=== PATIENT | female | born 1965 | race Caucasian/White ===

== ENCOUNTER → 2017-01-06 | Outpatient (CLI) | payer BC ==
[2017-01-06 19:22] LABS: Blood Urea Nitrogen 13 mg/dL (7-17); Non-African American GFR(MDRD) >60 (>60 ml/min/1.73 sqM)
--- NOTE | 2017-01-06 20:02 | CT ---
EXAMINATION TYPE: CT abdomen pelvis w con DATE OF EXAM: 01/06/2017 COMPARISON: 07/24/2010 HISTORY: Pelvic pain with alternating diarrhea and constipation x [address] DLP: 1693.20 mGycm Automated exposure control for dose reduction was used. TECHNIQUE: Helical acquisition of images was performed from the lung bases through the pelvis. CONTRAST: Performed with Oral Contrast and with IV Contrast, patient injected with 100 mL of Omnipaque 300. FINDINGS: Lung bases are clear. There is no pleural effusion. There is a gastric sleeve at the gastroesophageal junction. The liver spleen pancreas appear normal. Bile ducts are not dilated. Gallbladder is absent. There is no adrenal mass. Kidneys show satisfactory contrast opacification. There is no hydronephrosi s. There is no ascites. I see no intestinal wall thickening. There are no dilated loops. Appendix is not seen. There is no sign of appendicitis. I see no bony destructive process. There is probably a 2 mm calculus in the lower pole left kidney.: IMPRESSION: NO SIGN OF ACUTE ABDOMEN AND PELVIS. POSSIBLE SMALL CALCULUS IN THE LEFT KIDNEY. NO ADVERSE CHANGE CO MPARED TO OLD EXAM. THERE IS CLEARING OF CYSTIC MASSES IN THE PELVIS ON THE LEFT SIDE COMPARED TO OLD EXAM.
== END | disposition home or self-care (01) ==
LOC: RADCTMAIN 18:43
PROVIDERS: ATTEND Physician Assistant
DX: R19.00 Intra-abdominal and pelvic swelling, mass and lump, unspecified site (principal); R11.0 Nausea; R10.84 Generalized abdominal pain
CPT/HCPCS: 82565; 84520; 74177; 36415; Q9967

== ENCOUNTER → 2017-08-17 | Outpatient (CLI) | payer BC ==
--- NOTE | 2017-08-18 13:34 | MM ---
Reason for exam: screening (asymptomatic). Last mammogram was performed 4 years and 3 months ago. History: Patient is postmenopausal. Family history of premenopausal breast cancer in grandmother and breast cancer in maternal grandmother. Physical Findings: A clinical breast exam by your physician is recommended on an annual basis and results should be correlated with mammographic findings. MG 3D Screening Mammo W/Cad Bilateral CC and MLO view(s) were taken. XCCL view(s) were taken of the left breast. Prior study comparison: May 16, 2013, right diagnostic mammogram w/CAD. November 16, 2012, [facility] DIGITAL RIGHT MAMMOGRAM w/CAD. The breast tissue is heterogeneously dense. This may lower the sensitivity of mammography. There are typically benign round calcifications in both breasts. There is no discrete abnormality. ASSESSMENT: Benign, BI-RAD 2 RECOMMENDATION: Routine screening mammogram of both breasts in 1 year.
== END | disposition home or self-care (01) ==
LOC: RADMAMWWP 10:44
PROVIDERS: ATTEND Obstetrics & Gynecology
DX: Z12.31 Encounter for screening mammogram for malignant neoplasm of breast (principal); Z80.3 Family history of malignant neoplasm of breast
CPT/HCPCS: 77063; 77067

== ENCOUNTER → 2020-06-10 | Outpatient (CLI) | payer MEDICARE, BC ==
--- NOTE | 2020-06-11 11:28 | MM ---
Reason for exam: screening (asymptomatic). Last mammogram was performed 2 years and 10 months ago. History: Patient is postmenopausal. Family history of premenopausal breast cancer in grandmother and breast cancer in maternal grandmother. Took hormonal contraceptives for 5 months. Physical Findings: A clinical breast exam by your physician is recommended on an annual basis and results should be correlated with mammographic findings. MG 3D Screening Mammo W/Cad Bilateral CC and MLO view(s) were taken. Prior study comparison: August 17, 2017, bilateral MG 3d screening mammo w/cad. The breast tissue is heterogeneously dense. This may lower the sensitivity of mammography. No significant changes when compared with prior studies. ASSESSMENT: Negative, BI-RAD 1 RECOMMENDATION: Routine screening mammogram of both breasts in 1 year.
== END ==
LOC: RADMAMWWP 10:12
PROVIDERS: ATTEND Family Medicine
DX: Z12.31 Encounter for screening mammogram for malignant neoplasm of breast (principal); Z78.0 Asymptomatic menopausal state; Z80.3 Family history of malignant neoplasm of breast
CPT/HCPCS: 77063; 77067

== ENCOUNTER → 2021-08-15 | Outpatient (CLI) | payer BC, MEDICARE ==
[2021-08-15 20:16] LABS: C Reactive Protein 0.4 mg/dL (0.00-0.80)
[2021-08-15 22:39] LABS: Anti-DNA, DS unit <1.0 IU/mL; Cardiolipin Ab IgG Interp NEGATIVE (NEGATIVE); Cardiolipin Ab IgM Interp NEGATIVE (NEGATIVE); Cardiolipin IgA Antibody <2.0 U/mL; Cardiolipin IgM Antibody <1.5 U/mL; DNA Double-Stranded NEGATIVE (NEGATIVE)
== END | disposition home or self-care (01) ==
LOC: LABWHC1 12:33
PROVIDERS: ATTEND Physician Assistant
DX: D68.61 Antiphospholipid syndrome (principal)
CPT/HCPCS: 36415; 85652; 86038; 86140; 86147; 86160; 86225

== ENCOUNTER → 2021-09-25 | Outpatient (CLI) | payer BC, MEDICARE ==
--- NOTE | 2021-09-29 17:07 | MM ---
Reason for Exam: Screening (asymptomatic). Last mammogram was performed 1 year(s) and 3 month(s) ago. Patient History: Menarche at age 9. First Full-Term at age 21. Left ovary removed at age 44. Hysterectomy at age 33. Postmenopausal. Hormonal Contraceptives for 5 months. Maternal grandmother had breast cancer. Maternal grandmother had breast cancer. Risk Values: Barbara 5 year model risk: 1.3%. NCI Lifetime model risk: 7.6%. Prior Study Comparison: 05/16/2013 Right Diagnostic Mammogram, [facility]. 08/17/2017 Bilateral Screening Mammogram, [facility]. 06/10/2020 Bilateral Screening Mammogram, [facility]. Tissue Density: The breast tissue is heterogeneously dense. This may lower the sensitivity of mammography. Findings: Analyzed By CAD. No suspicious spiculated or lobular masses or clusters of microcalcifications or architectural distortion is evident. Findings appear stable. There is somewhat asymmetric parenchymal tissue is greater in the left than the right which is stable in appearance. Overall Assessment: Benign, BI-RAD 2 Management: Screening Mammogram of both breasts in 1 year. A clinical breast exam by your physician is recommended on an annual basis and results should be correlated with mammographic findings. Electronically signed and approved by: Fabian Benito D.O. Radiologis
== END | disposition home or self-care (01) ==
LOC: RADMAMWWP 07:34
PROVIDERS: ATTEND Family Medicine
DX: Z12.31 Encounter for screening mammogram for malignant neoplasm of breast (principal); Z80.3 Family history of malignant neoplasm of breast; Z78.0 Asymptomatic menopausal state
CPT/HCPCS: 77063; 77067

== ENCOUNTER → 2022-09-25 | Outpatient (CLI) | payer BC, MEDICARE ==
[2022-09-25 14:05] LABS: African American GFR (CKD) >90 (>60 ml/min/1.73 sqM); Blood Urea Nitrogen 9 mg/dL (7-17); Non-African American GFR(CKD) >90 (>60 ml/min/1.73 sqM)
--- NOTE | 2022-09-25 14:46 | CT ---
EXAMINATION TYPE: CT abdomen w con DATE OF EXAM: 09/25/2022 COMPARISON: 01/06/2017 HISTORY: RLQ abdomen pain and numbness. Suspected hernia. CT DLP: 864.6 mGycm Automated exposure control for dose reduction was used. TECHNIQUE: Helical acquisition of images was performed from the lung bases through the top of iliac crest to include entire abdomen. CONTRAST: Performed with Oral Contrast and with IV Contrast, patient injected with 100 ml mL of Isovue 300. FINDINGS: LUNG BASES: There is soft tissue fullness in the mediastinum is only partially measuring 1.1 cm and 5 in this may represent a small amount of pericardial fluid. LIVER/GB: Post cholecystectomy changes are seen. There is mildly reduced in attenuation, correlate fo r hepatic steatosis. PANCREAS: No significant abnormality is seen. SPLEEN: No significant abnormality is seen. ADRENALS: No significant abnormality is seen. KIDNEYS: No significant abnormality is seen. BOWEL: There is mild wall thickening of the distal esophagus. Bowel gas pattern nonspecific with no obstruction at LYMPH NODES: No significant abnormality is seen. OSSEOUS STRUCTURES: Mild hypertrophic changes of the spine. FREE AIR: No free air is visualized. OTHER: A 1 cm subcutaneous density in the anterior left wall and posterior left flank are too small t o characterize. Lap band catheter are stable. No sizable hernia identified. Atherosclerotic change of the aorta but no aneurysm. IMPRESSION: 1. NO EVIDENCE OF ABDOMINAL HERNIA. 2. POST GASTRIC LAP BAND SURGERY WITH MILD THICKENING OF THE WALL THE DISTAL ESOPHAGUS WHICH CAN BE A SSOCIATED WITH REFLUX ESOPHAGITIS CORRELATE CLINICALLY. CONSIDER EGD. 3. SMALL SUBCUTANEOUS NODULES TOO SMALL TO CHARACTERIZE.
== END | disposition home or self-care (01) ==
LOC: RADCTMAIN 13:22
PROVIDERS: ATTEND Family Medicine
DX: R10.813 Right lower quadrant abdominal tenderness (principal); R91.8 Other nonspecific abnormal finding of lung field
CPT/HCPCS: 82565; 84520; 74160; 36415; Q9967

== ENCOUNTER → 2022-10-07 | Outpatient (CLI) | payer BC, MEDICARE ==
--- NOTE | 2022-10-08 07:35 | MM ---
Reason for Exam: Screening (asymptomatic). Last screening mammogram was performed 12 month(s) ago. Patient History: Menarche at age 9. First Full-Term at age 21. Left ovary removed at age 44. Hysterectomy at age 33. Postmenopausal. Hormonal Contraceptives for 5 months. Maternal grandmother had breast cancer, age 67. Paternal grandmother had breast cancer, age 40. Risk Values: Barbara 5 year model risk: 1.4%. NCI Lifetime model risk: 7.4%. Prior Study Comparison: 08/17/2017 Bilateral Screening Mammogram, [facility]. 06/10/2020 Bilateral Screening Mammogram, [facility]. 09/25/2021 Bilateral MG 3D screening mammo w/cad, [facility]. Tissue Density: The breast tissue is heterogeneously dense. This may lower the sensitivity of mammography. Findings: Analyzed By CAD. There is no suspicious group of microcalcifications or new suspicious mass in either breast. Benign appearing round calcifications within both breasts. Overall Assessment: Benign, BI-RAD 2 Management: Screening Mammogram of both breasts in 1 year. A clinical breast exam by your physician is recommended on an annual basis and results should be correlated with mammographic findings. Note on Barbara scores and lifetime risk: 1. A Barbara score greater than 3% is considered moderate risk. If this is the case, consider specialist referral to assess eligibility for a risk reducing agent. If overall lifetime risk for the development of breast cancer is 20% or higher, the patient may qualify for future screening with alternating mammogram and breast MRI. Electronically signed and approved by: Per Bolaños D.O.
== END | disposition home or self-care (01) ==
LOC: RADMAMWWP 16:19
PROVIDERS: ATTEND Family Medicine
DX: Z12.31 Encounter for screening mammogram for malignant neoplasm of breast (principal); Z78.0 Asymptomatic menopausal state; Z80.3 Family history of malignant neoplasm of breast
CPT/HCPCS: 77063; 77067

== ENCOUNTER → 2023-11-23 | Outpatient (CLI) | payer BC, MEDICARE | END | disposition home or self-care (01) | LOC: LABPRL 15:07 | PROVIDERS: ATTEND Family Medicine | DX: R50.9 Fever, unspecified (principal) | CPT/HCPCS: 85025 ==

== ENCOUNTER → 2024-01-11 | Outpatient (CLI) | payer BC, MEDICARE ==
--- NOTE | 2024-01-12 11:26 | MM ---
Reason for Exam: Screening (asymptomatic). Last mammogram was performed 1 year(s) and 4 month(s) ago. Patient History: Menarche at age 9. First Full-Term at age 21. Left ovary removed at age 44. Hysterectomy at age 33. Postmenopausal. Hormonal Contraceptives for 5 months. Maternal grandmother had breast cancer, age 67. Paternal grandmother had breast cancer, age 40. Risk Values: Barbara 5 year model risk: 1.4%. NCI Lifetime model risk: 7.2%. Prior Study Comparison: 06/10/2020 Bilateral Screening Mammogram, [facility]. 09/25/2021 Bilateral MG 3D screening mammo w/cad, [facility]. 10/07/2022 Bilateral MG 3D screening mammo w/cad, [facility]. Tissue Density: There are scattered areas of fibroglandular density. Findings: Analyzed By CAD. Right breast: There is no suspicious group of microcalcifications or new suspicious mass. Left breast: There is no suspicious group of microcalcifications or new suspicious mass. Overall Assessment: Negative, BI-RAD 1 Management: Screening Mammogram of both breasts in [address] [facility] will attempt to contact patient to return for supplemental views and ultrasound if indicated. Patient should continue monthly self-breast exams. A clinical breast exam by your physician is recommended on an annual basis. This exam should not preclude additional follow-up of suspicious palpable abnormalities. Note on Barbara scores and lifetime risk: 1. A Barbara score greater than 3% is considered moderate risk. If this is the case, consider specialist referral to assess eligibility for a risk reducing agent. 2. If overall lifetime risk for the development of breast cancer is 20% or higher, the patient may qualify for future screening with alternating mammogram and breast MRI. [facility], , 01/12/2024 11:23 AM. Electronically signed and approved by: Simon Boucher DO
== END | disposition home or self-care (01) ==
LOC: RADMAMWWP 13:34
PROVIDERS: ATTEND Family Medicine
DX: Z12.31 Encounter for screening mammogram for malignant neoplasm of breast
CPT/HCPCS: 77063; 77067

== ENCOUNTER → 2024-01-21 | Outpatient (CLI) | payer BC, MEDICARE ==
--- NOTE | 2024-01-28 10:06 | US ---
EXAMINATION TYPE: US pelvis complete transvag DATE OF EXAM: 01/21/2024 COMPARISON: CT 2017 CLINICAL INDICATION: Female, 58 years old with history of R10.31 RIGHT LOWER QUADRANT PAIN; TECHNIQUE: . Transabdominal grayscale, color Doppler and spectral Doppler sonographic images of the pelvis were acquired. Transvaginal sonographic images were medically necessary to better assess the following anatomy: right ovary FINDINGS: Date of LMP: 25+ years ago EXAM MEASUREMENTS: Right Ovary: cm 1. Uterus: surgically absent 2. Endometrium: surgically absent 3. Right Ovary: not seen due to overlying bowel gas 4. Left Ovary: surgically absent 5. Bilateral Adnexa: wnl 6. Posterior cul-de-sac: wnl IMPRESSION: Postoperative pelvis. No distinct abnormality seen. [facility], , 01/28/2024 10:03 AM
== END | disposition home or self-care (01) ==
LOC: RADUSWWP 14:20
PROVIDERS: ATTEND Obstetrics & Gynecology
DX: R10.31 Right lower quadrant pain
CPT/HCPCS: 76830; 76856